=== PATIENT | female | born 1985 | race Caucasian/White ===

== ENCOUNTER → 2016-12-27 | Outpatient (CLI) | payer OTHER ==
[~2016-12-27] MED LIST: PRIL40 PO; WELLBUTRIN XL150 MG PO
== END ==
LOC: COL.RAD 08:43
DX: M24.131 Other articular cartilage disorders, right wrist (principal)
CPT/HCPCS: A9585; Q9967

== ENCOUNTER 2017-01-04 12:54 | Day surgery (SDC) | payer OTHER ==
[~2017-01-04] VITALS: Ht 167.6 cm; Wt 66.5 kg
[2017-01-04 13:30] VITALS: BP 121/77; PULSE 74; TEMP 97.8
[2017-01-04] MEDS ORDERED: WELLBUTRIN XL150 MG PO (13:35)
[2017-01-04] MEDS ORDERED: PRIL40 PO (13:35)
[2017-01-04 14:45] VITALS: BP 114/63; PULSE 85; TEMP 97.9
[2017-01-04 15:00] VITALS: BP 117/76; PULSE 70
[2017-01-04 15:15] VITALS: BP 117/67; PULSE 74
[2017-01-04 15:18] VITALS: BP 130/84; PULSE 84
== END 2017-01-04 15:30 | disposition home or self-care (01) ==
LOC: SDCO 12:54
DX: K21.0 Gastro-esophageal reflux disease with esophagitis (principal); R11.0 Nausea; R19.7 Diarrhea, unspecified
CPT/HCPCS: J2250; J2405; J3010; J7030